=== PATIENT | female | born 1970 | race Caucasian/White ===

== ENCOUNTER 2024-04-27 12:35 | Emergency (ER) | payer MEDICAID ==
[2024-04-27] MEDS ORDERED: Sodium Chloride 0.9% 10 ML Syringe FLUSH PRN (13:54)
[2024-04-27] MEDS: Ondansetron 4 MG/2 ML SDV IVPUSH ONE (14:09)
[2024-04-27] MEDS: Sodium Chloride 0.9% 1,000 ML IV SCH ×2 (14:09→15:27)
[2024-04-27 14:27] LABS: BASOPHILS ABSOLUTE AUTO 0.1 x10-3/uL (0.0-0.1); BASOPHILS PERCENT AUTO 1.3 % (0.2-1.5); EOSINOPHILS ABSOLUTE AUTO 0.4 x10-3/uL (0.0-0.8); EOSINOPHILS PERCENT AUTO 5.3 % (0.6-8.1); HEMATOCRIT 37.9 % (34.2-48.2); HEMOGLOBIN 12.6 g/dL (11.4-15.5); LYMPHOCYTES ABSOLUTE AUTO 2.9 x10-3/uL (1.0-4.4); LYMPHOCYTES PERCENT AUTO 34.3 % (18.4-52.1); MEAN CORPUSCULAR HEMOGLOBIN 25.4 pg (23.9-33.9); MEAN CORPUSCULAR HGB CONC 33.1 g/dL (31.9-34.8); MEAN CORPUSCULAR VOLUME 76.7 fL (76.7-100.5); MEAN PLATELET VOLUME 8.2 fL (7.1-12.4); MONOCYTES ABSOLUTE AUTO 0.6 x10-3/uL (0.3-1.0); MONOCYTES PERCENT AUTO 7.6 % (4.4-15.7); NEUTROPHILS ABSOLUTE AUTO 4.3 x10-3/uL (1.5-6.3); NEUTROPHILS PERCENT AUTO 51.5 % (30.8-76.2); PLATELET COUNT,PLT 268 x10(3)uL (151-488); RED BLOOD CELL COUNT 4.94 x10(6)uL (3.60-5.20); RED CELL DISTRIBUTION WIDTH 14.4 % (12.3-16.5); WHITE BLOOD CELL COUNT,WBC 8.4 x10-3/uL (3.0-10.3)
[2024-04-27 14:33] LABS: BLOOD UREA NITROGEN,BUN 19 mg/dL (7-18); BUN/CREATININE RATIO 23.8 (9-20); CARBON DIOXIDE,CO2 23 mmol/L (21-32); CHLORIDE,CL 101 mmol/L (100-110); CREATININE 0.8 mg/dL (0.55-1.02); ESTIMATED GFR 89 mL/min (>60); GLUCOSE RANDOM 240 mg/dL (80-116); SODIUM,NA 136 mmol/L (135-145)
[2024-04-27 14:40] LABS: A/G RATIO 0.7; ALANINE AMINOTRANSFERASE,ALT 37 U/L (12-36); ALBUMIN 3.2 g/dL (3.5-5.2); ALKALINE PHOSPHATASE 180 IU/L (56-112); AMYLASE 22 U/L (25-115); ASPARTATE AMNIOTRANSFERASE,AST 32 IU/L (5-25); BILIRUBIN TOTAL 0.7 mg/dL (0.1-1.3); PROTEIN TOTAL,TP 7.6 g/dL (6.0-8.0)
[2024-04-27] MEDS: Iopamidol 755 Mg/ML 100 ML Bottle IV SCH (15:01)
[2024-04-27 16:03] LABS: BILIRUBIN,URINE NEGATIVE (NEGATIVE); GLUCOSE,URINE >1000 mg/dL (NORMAL); KETONES,URINE NEGATIVE (NEGATIVE); LEUKOCYTE ESTERASE,URINE NEGATIVE (NEGATIVE); NITRITE,URINE NEGATIVE (NEGATIVE); OCCULT BLOOD,URINE NEGATIVE (NEGATIVE); PROTEIN,URINE NEGATIVE (NEGATIVE); UROBILINOGEN,URINE NORMAL (NEGATIVE)
[2024-04-27 16:04] LABS: APPEARANCE,URINE CLEAR (CLEAR); COLOR,URINE YELLOW (YELLOW)
== END 2024-04-27 16:48 | disposition home or self-care (01) ==
LOC: FB.ED 12:35
DX: N12 Tubulo-interstitial nephritis, not specified as acute or chronic (principal); N30.90 Cystitis, unspecified without hematuria; I10 Essential (primary) hypertension; I25.2 Old myocardial infarction; E78.00 Pure hypercholesterolemia, unspecified; E11.9 Type 2 diabetes mellitus without complications; Z79.4 Long term (current) use of insulin; Z79.899 Other long term (current) drug therapy; Z88.0 Allergy status to penicillin
CPT/HCPCS: 36415; 74177; 80053; 81003; 82150; 82947; 83605; 83690; 85025; 96361; 96374; 99285-25; J2405; J7030; Q9967

== ENCOUNTER 2025-03-23 13:47 | Emergency (ER) | payer MEDICAID ==
[2025-03-23] MEDS ORDERED: Sodium Chloride 0.9% 10 ML Syringe FLUSH PRN (14:15)
[2025-03-23] MEDS: Iopamidol 755 Mg/ML 100 ML Bottle IV SCH (14:29)
[2025-03-23] MEDS: Sodium Chloride 0.9% 1,000 ML IV SCH (15:30)
[2025-03-23] MEDS: Ketorolac 30 MG/ML SDV IVPUSH ONE (15:46)
== END 2025-03-23 16:16 | disposition home or self-care (01) ==
LOC: FB.ED 13:47
DX: N10 Acute pyelonephritis (principal); E11.9 Type 2 diabetes mellitus without complications; N30.00 Acute cystitis without hematuria; Z88.0 Allergy status to penicillin; Z79.899 Other long term (current) drug therapy; Z90.49 Acquired absence of other specified parts of digestive tract
CPT/HCPCS: 74177; 82947; 96361; 96374; 99283; 99284; J1885; J7030; Q9967